=== PATIENT | male | born 1970 | race Caucasian/White ===

== ENCOUNTER → 2017-10-05 | Outpatient (CLI) | payer BC | END | disposition home or self-care (01) | LOC: KCIC MRI 08:29 | DX: T15.90XA Foreign body on external eye, part unspecified, unspecified eye, initial encounter (principal); M47.896 Other spondylosis, lumbar region; M48.061 Spinal stenosis, lumbar region without neurogenic claudication; M25.78 Osteophyte, vertebrae | CPT/HCPCS: 70030; 72148 ==

== ENCOUNTER 2018-04-06 17:24 | Emergency (ER) | payer BC ==
[2018-04-06] MEDS: LIDOCAINE 1% PF 30 ML VIAL. INJ (19:36)
== END 2018-04-06 20:23 | disposition home or self-care (01) ==
LOC: ER 17:24
DX: S61.442A Puncture wound with foreign body of left hand, initial encounter (principal); Z88.8 Allergy status to other drugs, medicaments and biological substances; Z91.041 Radiographic dye allergy status; W45.8XXA Other foreign body or object entering through skin, initial encounter; Y93.89 Activity, other specified; Y92.89 Other specified places as the place of occurrence of the external cause; Y99.8 Other external cause status
CPT/HCPCS: 10120; 73130; 99284

== ENCOUNTER → 2018-09-22 | Day surgery (SDC) | payer BC ==
[~2018-09-22] MED LIST: CEPH-264 PO; HYDROmorphone 2 MG/ML VIAL IV PRN; IBUP-1027 PO; IV RINGERS,LACTATED 1000ML 1,000 ML IV SCH; LIDOCAINE 1% PF 2 ML VIAL. ID PRN; LORA10TA68 PO; MORPHINE SULFATE 4 MG/ML VIAL. IV PRN; NAPR220C4 PO; ONDANSETRON PF 4 MG/2 ML VIAL. IV PRN; PROPOFOL 40 ML IV ONE; fentaNYL PF VIAL 100 MCG/2 ML VIAL IV PRN
[2018-09-22 09:50] VITALS: BP 147/79
== END | disposition home or self-care (01) ==
LOC: SURG 08:03
PROVIDERS: ATTEND Internal Medicine Gastroenterology
DX: K57.30 Diverticulosis of large intestine without perforation or abscess without bleeding (principal); K64.0 First degree hemorrhoids; Z85.46 Personal history of malignant neoplasm of prostate; Z85.828 Personal history of other malignant neoplasm of skin; Z83.71 Family history of colonic polyps; Z91.041 Radiographic dye allergy status; Z88.8 Allergy status to other drugs, medicaments and biological substances; Z72.0 Tobacco use
CPT/HCPCS: 45378; J2704